=== PATIENT | male | born 1995 | race Caucasian/White ===

== ENCOUNTER 2025-06-08 17:33 | Emergency (ER) | payer MEDICAID ==
[~2025-06-08] VITALS: Ht 177.8 cm; Wt 82.0 kg
[2025-06-08] MEDS ORDERED: OLAN20TA79 PO (17:39)
[2025-06-08] MEDS ORDERED: BUPR-74 PO (17:40)
[2025-06-08] MEDS ORDERED: MIDAZOLAM HCL 5 MG/ML VIAL IM ONE (18:00)
[2025-06-08] MEDS: SODIUM CHLORIDE 0.9% 1,000 ML IV ONE (18:16)
[2025-06-08 18:18] LABS: HEMATOCRIT. 45.3 % (42.0-52.0); HEMOGLOBIN. 15.4 g/dL (14.0-18.0); MEAN PLATELET VOLUME 7.4 fl (7.4-10.4); PLATELET 320 x1000/uL (130-400); RED BLOOD CELL COUNT 5.01 mill/uL (4.7-6.1); RED CELL DISTRIBUTION WIDTH 13.7 % (11.6-14.6)
[2025-06-08 18:21] VITALS: O2SAT 96
[2025-06-08] MEDS: MIDAZOLAM HCL 5 MG/5 ML VIAL IM NR (18:21)
[2025-06-08 18:30] LABS: CREATININE 1.4 mg/dL (0.6-1.3)
[2025-06-08 18:31] LABS: ETHANOL BLOOD < 10 mg/dL (<10); UREA NITROGEN BLOOD 11 mg/dL (9-23)
[2025-06-08 18:42] LABS: LYMPHOCYTES % MANUAL 9.0 % (20.0-50.0); MONOCYTES % MANUAL 5.0 % (2.0-8.0); NEUTROPHILS % MANUAL 86.0 % (45.0-75.0); PLATELET ESTIMATE NORMAL
[2025-06-08] MEDS: DIAZEPAM 5 MG/ML 2ML SYR IM ONE ×2 (20:03→21:28)
[2025-06-08] MEDS: HALOPERIDOL LACTATE 5MG/ML VIAL IM ONE (20:04)
[2025-06-08 21:22] LABS: *AMPHETAMINES SCREEN URINE PRESUMPTIVE POSITIVE (NEGATIVE); *BARBITURATES SCREEN URINE NEGATIVE (NEGATIVE); *BENZODIAZEPINES SCREEN URINE PRESUMPTIVE POSITIVE (NEGATIVE); *COCAINE SCREEN URINE NEGATIVE (NEGATIVE)
[2025-06-08 21:23] LABS: CANNABINOID URINE SCREEN NEGATIVE (NEGATIVE); ECSTASY MDMA SCREEN URINE CONF.TEST INDICATED (NEGATIVE); METHADONE URINE SCREEN NEGATIVE (NEGATIVE); OPIATES URINE SCREEN NEGATIVE (NEGATIVE); PHENCYCLIDINE URINE SCREEN NEGATIVE (NEGATIVE)
[2025-06-08] MEDS: NICOTINE 21MG PATCH TD NR (22:12)
[2025-06-09 00:23] VITALS: BP 143/93; PULSE 89; RESP 22; TEMP 37.6; O2SAT 96
== END 2025-06-09 00:51 | disposition home or self-care (01) ==
LOC: ER 17:33
DX: T50.901A Poisoning by unspecified drugs, medicaments and biological substances, accidental (unintentional), initial encounter (principal); F15.10 Other stimulant abuse, uncomplicated; F17.200 Nicotine dependence, unspecified, uncomplicated; F20.9 Schizophrenia, unspecified; Z20.822 Contact with and (suspected) exposure to COVID-19; Y92.89 Other specified places as the place of occurrence of the external cause
CPT/HCPCS: 80305; 80048; 80307; 80329; 80320; 85025; 36415; 96372; 99285; 87426; J3360; J1630; J2250; J7030; Z7610; A4606; G0480